=== PATIENT | male | born 1990 | race Caucasian/White ===

== ENCOUNTER → 2017-03-03 | Day surgery (SDC) | payer OTHER ==
[~2017-03-03] VITALS: Ht 180.3 cm; Wt 104.3 kg
[~2017-03-03] MED LIST: BUPIVACAINE/EPIN 0.5% 30 ML VIAL As Ordered ONE; EPINEPHrine 1MG/ML INJ 30ML MD-VIAL As Ordered ONE; GLYCOPYRROLATE INJ 0.2 MG/ML 2 ML VIAL As Ordered ONE; IBUP-1114 PO; KETOROLAC 60 MG/2 ML VIAL (J1885) As Ordered ONE; LABETALOL HCL 100 MG/20 ML VIAL As Ordered ONE; LIDOCAINE 2% INJ 100 MG/5 ML SDV (FOR ANES.) As Ordered ONE; LR 1,000 ML IV ONE; LR 1,000 ML IV SCH; METOCLOPRAMIDE INJ 10MG/2ML VIAL (J2765) IV PRN; MIDAZOLAM INJ 2 MG/2 ML VIAL (J2250) As Ordered ONE; MIDAZOLAM INJ 2 MG/2 ML VIAL (J2250) IV ONE; NEOSTIGMINE 1MG/ML 5 ML SYRINGE (J2710) As Ordered ONE; ONDANSETRON 4MG/2ML VIAL (J2405) As Ordered ONE; ONDANSETRON 4MG/2ML VIAL (J2405) IV PRN; PERCOCET 5MG/325MG TAB PO PRN; PROPOFOL 200 MG/20 ML VIAL As Ordered ONE; ROCURONIUM BROMIDE 50 MG/5 ML VIAL As Ordered ONE; ROPIvacaine 0.5% 30 ML INJECTION (J2795) ONE; ZANA4TAB PO; dexameTHASONE 10 MG/1 ML VIAL PRES.FREE (J1100) ONE; dexameTHASONE 4 MG/ML 1ML VIAL (J1100) As Ordered ONE; fentaNYL 100 MCG/2 ML INJECTION (J3010) As Ordered ONE; fentaNYL 100 MCG/2 ML INJECTION (J3010) IV ONE; fentaNYL 100 MCG/2 ML INJECTION (J3010) IV PRN; fentaNYL 250 MCG/5 ML INJECTION (J3010) As Ordered ONE
--- NOTE | 2017-03-03 14:35 | RO ---
DATE OF OPERATION: 03/03/2017 PREOPERATIVE DIAGNOSIS: Right shoulder bicipital tendinitis. POSTOPERATIVE DIAGNOSES: Right shoulder bicipital tendinitis. Humeral head and glenoid chondromalacia. Right shoulder loose bodies. PROCEDURE PERFORMED: 1. Right shoulder examination under anesthesia, 2. diagnostic arthroscopy 3. right shoulder arthroscopic loose body removal 4. open subpectoral biceps tenodesis 5. subacromial bursectomy. SURGEON: Miguel Renee MD PAPER CUTTING MACHINE OPERATOR: TAVARES York ANESTHESIA GIVEN: Laryngeal mask airway (LMA) anesthesia and interscalene nerve block. IMPLANTS USED: Arthrex Proximal BicepsButton. MATERIAL SENT TO THE LABORATORY: Loose bodies right shoulder for permanent specimen. ANTIBIOTICS: 2 grams Ancef given within 1 hour of incision. COMPLICATIONS: None. 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 The patient also had a concomitant neck pain. He underwent a trial of physical therapy, activity modification, antiinflammatory medications, and a series of injections about the cervical spine, and biceps tendon sheath to aid in diagnosis. The patient got the most significant relief from right shoulder biceps tendon sheath injection. He had MRI findings, which were consistent with bicipital tendinitis and evidence of a possible labral tear. I discussed with the patient the risks, benefits, indications, and alternatives of operative versus nonoperative treatment, and he elected to proceed with right shoulder arthroscopy, open subpectoral biceps tenodesis, and other procedures as indicated based on arthroscopic findings. Informed consent was obtained. INTRAOPERATIVE FINDINGS: There were two loose bodies identified in the shoulder. One measured approximately 8 mm in diameter. The second one measured approximately 3 mm in diameter. Both were removed without difficulty. The examination under anesthesia demonstrated a grade 2 anterior load shift and grade 1 posterior load shift. He had full range of motion passively about the right shoulder. Diagnostic arthroscopy revealed loose bodies, as noted above. There was also significant grade 3 to grade 4 chondromalacia on the humeral head and grade 2 chondromalacia on the anterior inferior aspect of the glenoid. The anterior inferior labrum was intact. There was evidence of synovitis in the long head of the biceps tendon. The subscapularis and the remainder of the rotator cuff appeared intact with no tears. There were no posterior labral tears. There was significant generalized synovitis diffusely about the shoulder. Examination of the subacromial space revealed no evidence of bursal-sided rotator cuff tear and greater than 10 mm of subacromial space. DESCRIPTION OF PROCEDURE: The patient was positively identified in the preoperative holding area. The surgical site was marked. He was given an interscalene nerve block by the anesthesia service for postoperative pain control. He was brought to the operating room, where he was placed under LMA anesthesia. He was seated in the beach chair position with all bony prominences appropriately padded. Sequential compression devices (SCDs) were placed on the lower extremities for deep venous thrombosis (DVT) prophylaxis. I performed my examination under anesthesia with the above-noted findings. He was prepped and draped in the usual sterile fashion. A final time-out was performed. I made a standard posterolateral viewing portal and an anterior working portal and placed an 8 mm threaded cannula in the anterior portal. I performed my diagnostic arthroscopy as described above. The loose bodies were identified, secured, and removed from the shoulder. I performed a limited synovectomy and chondroplasty of the glenoid chondromalacia. There were no focal cartilaginous defects. I tagged the long hand of the biceps tendon with a FiberWire suture and performed a biceps tenotomy, debriding the residual stump of the superior labral biceps insertion. I then turned my attention to the subacromial space. A subacromial bursectomy was performed to identify the bursal side of the rotator cuff, noting no evidence of bursal-sided rotator cuff tear. At this point, final arthroscopic photos were taken. The arthroscope was removed from the shoulder, and I proceeded to the open portion of the procedure. I made a 3 cm incision in line with the anterior axillary fold at the level of the pectoralis major tendon. I dissected through skin and subcutaneous tissue and identified the fascia of the pectoralis major. I bluntly dissected on the deep surface of the pectoral major tendon, placed a pointed Hohmann retractor under the pectoralis major over the lateral aspect of the humerus to retract the tendon laterally, identified the short head of the biceps which was gently retracted medially to protect the musculocutaneous nerve. The long head of the biceps was identified and delivered from the wound. I then whipstitched the musculotendinous junction using a FiberLoop suture. The residual tendon was discarded. I then drilled a 3.2 mm agricultural pilot hole in the center of the humerus in the inferior portion of the bicipital groove. I confirmed that the BicepsButton was well fixed on the intramedullary part of the humeral cortex. The tendon was then secured down and sutured in place with one free end of the suture passed through the tendon to lock it in place, which was then tied. I noted adequate tension of the long head of the biceps tendon. I then thoroughly irrigated the wound with normal saline, closed in layers with 2-0 Vicryl for the subcutaneous layer and running 4-0 Monocryl for the skin of the anterior axillary wound. The arthroscopy wounds were closed with interrupted 4-0 Monocryl suture. Sterile dressings were applied. This ended the procedure. I was present and scrubbed in for all critical portions of the case. POSTOPERATIVE PLAN: The patient will be discharged home today. He will undergo a biceps tenodesis rehabilitation protocol and present to the clinic in 10-14 days for a wound check. JAYLA
--- NOTE | 2017-03-03 15:06 | REP ---
RIGHT SHOULDER, SINGLE VIEW: Single view of the right shoulder is performed. Osseous structures are intact and well aligned. A tiny metallic density is seen overlying the humeral shaft. Signed by Albino Crook MD 03/03/2017 03:17 P
[2017-03-03 15:45] VITALS: BP 128/65
== END | disposition home or self-care (01) ==
LOC: M SDC 08:28
PROVIDERS: ATTEND Orthopaedic Surgery
DX: M75.21 Bicipital tendinitis, right shoulder (principal); M94.211 Chondromalacia, right shoulder; M24.011 Loose body in right shoulder; M54.2 Cervicalgia; F17.220 Nicotine dependence, chewing tobacco, uncomplicated; M19.011 Primary osteoarthritis, right shoulder; J45.909 Unspecified asthma, uncomplicated; R29.898 Other symptoms and signs involving the musculoskeletal system; Z79.899 Other long term (current) drug therapy
CPT/HCPCS: 23430; 29819; 29822; 73020; 88300; C1713; J0690; J1100; J1885; J2250; J2405; J2710; J2795; J3010